=== PATIENT | female | born 1945 | race Caucasian/White ===

== ENCOUNTER 2020-09-05 15:34 | Emergency (ER) | payer OTHER, MEDICARE | END 2020-09-05 17:45 | disposition home or self-care (01) | LOC: FER 15:34 | DX: S51.011A Laceration without foreign body of right elbow, initial encounter (principal); S00.83XA Contusion of other part of head, initial encounter; F03.90 Unspecified dementia, unspecified severity, without behavioral disturbance, psychotic disturbance, mood disturbance, and anxiety; J44.9 Chronic obstructive pulmonary disease, unspecified; Z23 Encounter for immunization; Z87.891 Personal history of nicotine dependence; W19.XXXA Unspecified fall, initial encounter | CPT/HCPCS: 70450; 73080; 90471; 90715 ==

== ENCOUNTER 2021-07-29 09:53 | Emergency (ER) | payer OTHER, MEDICARE ==
[2021-07-29] MEDS ORDERED: PREDNISONE 20MG20 MG PO (11:51)
== END 2021-07-29 12:00 | disposition home or self-care (01) ==
LOC: FER 09:53
DX: M54.12 Radiculopathy, cervical region (principal); J44.9 Chronic obstructive pulmonary disease, unspecified
CPT/HCPCS: 72050; 73030